=== PATIENT | female | born 2000 ===

== ENCOUNTER 2022-01-16 09:57 | Inpatient (IN) | payer SELFPAY ==
[2022-01-16] MEDS: LACTATED RINGERS 1,000 ML IV SCH ×3 (11:15→18:48)
--- NOTE | 2022-01-16 11:16 | History and Physical Report ---
History of Present Illness Date of examination: 01/16/22 Date of admission: 01/16/2022 Chief complaint: Contractions, leaking of water. History of present illness: 21 year old presents to L&D at 40 weeks, 3 days gestation with complaint of contractions and leaking of water since 1:00 this morning. Patient received care at [facility] and she brings records with her. LMP 04/08/21. EDC 01/13/22. Reports normal uneventful . Denies health problems. labs are as follows: A+, antibody screen negative, rubella immune, hepatitis B surface antigen negative, RPR nonreactive, HIV negative, gonorrhea negative, chlamydia negative, GBS negative, pap smear normal, glucose test normal. Past History Past Medical History: no pertinent history Past Surgical History: no surgical history [employer] History: denies: chlamydia, gonorrhea, hepatitis B, hepatitis C, herpes, HIV, syphilis, trichomonas Family/Genetic History: none Social history: no significant social history, full code. denies: smoking, alcohol abuse, prescription drug abuse, IV drug use - Obstetrical History Expected Date of Delivery: 01/13/22 Actual Gestation: 40 Week(s) 3 Day(s) : 1 Para: 0 Hx # Term Pregnancies: 0 Number of Pregnancies: 0 Spontaneous Abortions: 0 Induced : 0 Number of Living Children: 0 Medications and Allergies Allergies Allergy/AdvReac Type Severity Reaction Status Date / Time No Known Allergies Allergy Unverified 01/16/22 10:31 Active Meds: Active Medications Acetaminophen (Acetaminophen 325 Mg Tab) 650 mg PO Q4H PRN PRN Reason: Pain, Mild (1-3) Carboprost Tromethamine (Carboprost Tromethamine 250 Mcg/1 Ml Inj) 250 mcg IM ONCE PRN PRN Reason: Uterine Bleeding Ephedrine Sulfate (Ephedrine Sulfate 50 Mg/1 Ml Inj) 10 mg IV Q2M PRN PRN Reason: Hypotension Fentanyl (Fentanyl 100 Mcg/2 Ml Inj) 100 mcg IV Q2H PRN PRN Reason: Pain,Severe (7-10) LABOR PAIN Oxytocin/Sodium Chloride (Pitocin/Ns 30 Unit/500ml) 30 units in 500 mls @ 2 mls/hr IV TITR CHRISTIE; Protocol Lactated Ringer's (Lactated Ringers) 1,000 mls @ 125 mls/hr IV DIRECT CHRISTIE Oxytocin/Sodium Chloride (Pitocin/Ns 30 Unit/500ml) 30 units in 500 mls @ 40 mls/hr IV TITR CHRISTIE; Protocol Ampicillin Sodium (Ampicillin/Ns 2 Gm/100 Ml) 2 gm in 100 mls @ 100 mls/hr IV ONCE ONE; Protocol Stop: 01/16/22 12:04 Lidocaine (Lidocaine (2%) 20 Mg/1 Ml Vial 20 Ml Mdv) 20 ml INFILTRATI ONCE ONE Stop: 01/16/22 12:01 Loperamide HCl (Loperamide 2 Mg Cap) 2 mg PO ONCE PRN PRN Reason: give with Hemabate Methylergonovine Maleate (Methylergonovine Maleate 0.2 Mg/Ml Vial) 0.2 mg IM ONCE PRN PRN Reason: Uterine Bleeding Mineral Oil (Mineral Oil 30 Ml Oral Liqd) 30 ml PO QHS PRN PRN Reason: Constipation Misoprostol (Misoprostol 200 Mcg Tab) 800 mcg ND ONCE PRN PRN Reason: Uterine Bleeding Nalbuphine HCl (Nalbuphine 10 Mg/1 Ml Inj) 10 mg IV Q2H PRN PRN Reason: Pain, Moderate (4-6) Oxytocin (Oxytocin 10 Unit/1 Ml Inj) 10 unit IM ONCE PRN PRN Reason: Uterine Bleeding Terbutaline Sulfate (Terbutaline 1 Mg/1 Ml Inj) 0.25 mg SUB-Q ONCE PRN PRN Reason: Hyperstimulation/Hypertonicity Review of Systems All systems: negative (contractions, leaking of fluid) - Vital Signs Vital signs: Vital Signs Pulse Pulse Ox 101 H 99 01/16/22 10:23 01/16/22 10:23 Temp Pulse Resp BP Pulse Ox 98.8 F 108 H 131/77 99 01/16/22 10:40 01/16/22 11:08 01/16/22 11:01 01/16/22 11:08 - Physical Exam Abdomen: Positive: normal appearance, soft. Negative: distention, tenderness, guarding, rigidity Genitourinary (Female): Positive: normal external genitalia, normal perenium. Negative: perineal/vulvar lesions Vagina: Positive: other (small amount of clear fluid seen) Uterus: Positive: enlarged. Negative: tender Anus/Rectum: Positive: normal perianal skin Extremities: Negative: tenderness - Obstetrical FHR: category 1 Uterine Contraction Monitor Mode: External Cervical Dilatation: 3 Cervical Effacement Percentage: 100 station: -3 Uterine Contraction Pattern: Irregular Uterine Contraction Intensity: Mild Results All other labs normal. Assessment and Plan A: at 40 weeks, 3 days gestation. SROM, early labor. GBS negative. P: Admit. EFM. Pitocin augmentation of labor. Patient consented to Pitocin augmentation of labor. Epidural if desired.
[2022-01-16] MEDS ORDERED: ePHEDrine SULFATE 50 MG/1 ML INJ IV PRN ×2 (12:00→18:15)
[2022-01-16] MEDS ORDERED: ACETAMINOPHEN 325 MG TAB PO PRN (12:00)
[2022-01-16] MEDS ORDERED: LOPERAMIDE 2 MG CAP PO PRN (12:00)
[2022-01-16] MEDS ORDERED: CARBOPROST TROMETHAMINE 250 MCG/1 ML INJ IM PRN (12:00)
[2022-01-16] MEDS ORDERED: OXYTOCIN 10 UNIT/1 ML INJ IM PRN (12:00)
[2022-01-16] MEDS ORDERED: AMPICILLIN/NS 2 GM/100 ML 2 GM/100 ML BAG IV ONE (12:00)
[2022-01-16] MEDS ORDERED: LIDOCAINE (2%) 20 MG/1 ML VIAL 20 ML MDV INFILTRATI ONE ×3 (12:00→23:37)
[2022-01-16] MEDS ORDERED: OXYTOCIN DRIP 30 UNITS/500 ML BAG IV SCH ×2 (12:00)
[2022-01-16] MEDS ORDERED: METHYLERGONOVINE MALEATE 0.2 MG/ML VIAL IM PRN (12:00)
[2022-01-16] MEDS ORDERED: TERBUTALINE 1 MG/1 ML INJ SUB-Q PRN (12:00)
[2022-01-16] MEDS ORDERED: miSOPROStol 200 MCG TAB PR PRN (12:00)
[2022-01-16] MEDS ORDERED: NalbUPHINE 10 MG/1 ML INJ IV PRN (12:00)
[2022-01-16] MEDS ORDERED: MINERAL OIL 30 ML ORAL LIQD PO PRN (12:00)
[2022-01-16 12:03] LABS: Hematocrit 38.2 % (30.3-42.9); Hemoglobin 12.6 gm/dl (10.1-14.3); Mean Corpuscular HGB Conc 33 % (30-34); Mean Corpuscular Volume 91 fl (79-97); Platelet Count 269 K/mm3 (140-440); Red Blood Count 4.19 M/mm3 (3.65-5.03); Red Cell Distribution Width 14.3 % (13.2-15.2)
[2022-01-16 12:09] LABS: Alanine Aminotransferase 11 units/L (7-56); Albumin 3.4 g/dL (3.9-5); Blood Urea Nitrogen 9 mg/dL (7-17); Calcium 9.1 mg/dL (8.4-10.2); Hemolysis Index 3
[2022-01-16 12:48] LABS: BUN/Creatinine Ratio 18
[2022-01-16] MEDS ORDERED: GENTAMICIN 100 MG in SODIUM CHLORIDE 0.9% 100 ML IV SCH (15:15)
[2022-01-16] MEDS: fentaNYL 100 MCG/2 ML INJ IV PRN ×2 (15:50→22:04)
--- NOTE | 2022-01-16 15:50 | Event Note ---
Date: 01/16/22 Patient requests pain medication. SVE 4/100/-3. Mild maternal tachycardia noted. Mild fundal tenderness. Elevated WBC (17.7). Antibiotics changed to Ampicillin 2 grams IV every 6 hours and Gentamicin 100 mg IV every 8 hours due to suspected early chorioamnionitis. So far patient is afebrile but she states she feels hot. FHR tracing is reassuring. Patient is receiving Pitocin for augmentation of labor due to srom since 01:00 today and suspected early chorio. Contractions are every 2-3 minutes and uterus palpates soft between contractions. Urinalysis and urine culture ordered.
[2022-01-16] MEDS ORDERED: AMPICILLIN/NS 1 GM/50 ML 1 GM/50 ML BAG IV SCH (16:00)
[2022-01-16] MEDS: AMPICILLIN/NS 2 GM/100 ML 2 GM/100 ML BAG IV SCH ×2 (18:04→22:48)
[2022-01-16] MEDS ORDERED: NALOXONE 2 MG/2 ML INJ IV PRN (18:15)
[2022-01-16] MEDS ORDERED: fentaNYL-BUPIV 2 MCG/ML-0.125% 200 MCG/100 ML BAG EPIDURAL SCH (19:00)
--- NOTE | 2022-01-16 19:01 | Anesthesia Consultation ---
Anesthesia Consult and Med Hx Date of service: 01/16/22 - Airway Anesthetic Teeth Evaluation: Poor ROM Head & Neck: Adequate Mental/Hyoid Distance: Adequate Mallampati Class: Class II Intubation Access Assessment: Probably Good - Pulmonary Exam CTA: Yes - Cardiac Exam Cardiac Exam: RRR - Pre-Operative Health Status ASA Pre-Surgery Classification: ASA2 Proposed Anesthetic Plan: Epidural - Pulmonary Hx Smoking: No Hx Asthma: No COPD: No Hx Pneumonia: No - Cardiovascular System Hx Hypertension: No - Central Nervous System Hx Seizures: No Hx Psychiatric Problems: No - Endocrine Hx Renal Disease: No Hx End Stage Renal Disease: No Hx Hypothyroidism: No Hx Hyperthyroidism: No - Hematic Hx Anemia: No Hx Sickle Cell Disease: No - Other Systems Hx Alcohol Use: No Hx Substance Use: No
--- NOTE | 2022-01-16 19:04 | Progress Note ---
Labor Epidural - Labor Epidural Start Time: 18:31 Stop Time: 18:45 Performed by:: SIDNEY PELAEZ Procedure: Patient is requesting epidural for labor pain. H&P and labs reviewed. Procedure explained, questions answered, consent obtained. Patient placed in sitting position with monitors applied. Timeout performed immediately before start of procedure. Prep/drape in usual sterile fashion. Skin localized 3 mL 1% lidocaine at L[3]-L[4] interspace. 17-gauge Touhy epidural needle advanced to ML with saline at [8] cm [id number]. No blood/CSF noted via epidural needle. Epidural catheter advanced to [12] cm. Negative aspiration for blood and CSF via catheter, negative response to test dose 3 ml 1.5% lidocaine w/ Epi. Sterile dressing applied followed by tape reinforcement. Patient tolerated procedure well. No immediate complications noted.
--- NOTE | 2022-01-16 20:00 | Event Note ---
Date: 01/16/22 Pitocin turned off at 19:09. FHR at that time with marked variability and baseline rate of 145 and accelerations present. Patient repositioned in lateral position. Oxygen per face mask. Contractions every 2-3 minutes. Uterus palpates soft between contractions. Patient is comfortable since receiving epidural. SVE 9/100/0. FHR 150s with moderate variability and accelerations.
[2022-01-16] MEDS ORDERED: MAGNESIUM HYDROXIDE (MOM) ORAL LIQD UDC PO PRN (23:21)
[2022-01-16] MEDS ORDERED: WITCH HAZEL/ GLYCERIN PAD TP PRN (23:21)
[2022-01-16] MEDS ORDERED: HYDROCORTISONE 25 MG RECTAL SUPP PR PRN (23:21)
[2022-01-16] MEDS ORDERED: BENZOCAINE/MENTHOL 20/0.5% TOP SPRAY 56 GM TP PRN (23:21)
[2022-01-16] MEDS ORDERED: LANOLIN/ZINC/DIMETHICONE (LANSINOH) 7 GM TP PRN ×2 (23:21)
[2022-01-16] MEDS ORDERED: HYDROcodone/ACETAMINOPHEN 5-325 MG TAB PO PRN (23:21)
--- NOTE | 2022-01-16 23:33 | Procedure Note ---
OB Delivery Note - Delivery Date of Delivery: 01/16/22 Surgeon: LEORA RICKS Estimated blood loss: 300cc - Vaginal Delivery presentation: vertex Delivery position: OA Intrapartum events: none Delivery induction: none Delivery augmentation: pitocin Delivery monitor: external FHT, external uterine Route of delivery: Delivery placenta: spontaneous Delivery cord: 3 umbilical vessels Episiotomy: none Delivery laceration: 1st degree, 2nd degree Delivery repair: vicryl Anesthesia: local, epidural Delivery comments: Spontaneous vaginal delivery at 21:42 of liveborn male infant weighing 7 lb. 6 oz. with apgars of 8/9. Epidural anesthesia. was atraumatic; baby was placed on mom's chest immediately after delivery. Baby was suctioned with bulb syringe and dried. Spontaneous cry and respirations. 3 vessel cord was double clamped and cut and baby taken to radiant warmer for evaluation. Spontaneous delivery of intact placenta and membranes at 21:47. Pitocin to IV fluids after delivery of placenta. EBL 300 cc. Second degree perineal laceration, vaginal laceration, and bilateral first degree labial lacerations repaired with 2-0 and 3-0 vicryl suture. No other lacerations noted. Vaginal sweep negative. Sponge count correct. Mother and baby stable in birthing room. Placenta to pathology.
[2022-01-17] MEDS: IBUPROFEN 800 MG TAB PO SCH ×4 (01:56→22:36)
[2022-01-17] MEDS: DOCUSATE SODIUM 100 MG CAP PO SCH ×3 (01:56→22:36)
--- NOTE | 2022-01-17 05:49 | Post Anesthesia Evaluation ---
- Post Anesthesia Evaluation Patient Participated: Yes Airway Patent: Yes Stable Respiratory Function: Yes Nausea/Vomiting: No Temp > 96.8F: Yes Pain Manageable: Yes Adequeate Hydration: Yes Anesthesia Complications: No Block Receding Appropriately: Yes Patient on Ventilator: No
[2022-01-17 08:54] LABS: Hematocrit 32.3 % (30.3-42.9); Hemoglobin 10.8 gm/dl (10.1-14.3); Mean Corpuscular HGB Conc 33 % (30-34); Mean Corpuscular Volume 92 fl (79-97); Platelet Count 222 K/mm3 (140-440); Red Blood Count 3.53 M/mm3 (3.65-5.03); Red Cell Distribution Width 14.8 % (13.2-15.2)
--- NOTE | 2022-01-17 10:20 | Progress Note ---
Assessment and Plan A: PP Day #1 Stable P: Follow Routine Orders D/C home today per patient request RTO in 6 Weeks Subjective - Subjective Date of service: 01/17/22 Patient reports: appetite normal, voiding normally, pain well controlled, flat us, ambulating normally : doing well, bottle feeding (and ) Objective - Vital Signs Latest vital signs: Vital Signs Temp Pulse Resp BP BP Pulse Ox Pulse Ox 01/17/22 08:28 96 01/17/22 07:18 98.2 F 78 18 121/62 96 01/17/22 04:48 98.5 F 81 18 109/53 97 01/17/22 00:30 98.4 F 98 H 20 130/60 98 98 01/17/22 00:00 105 H 98 01/16/22 23:55 94 H 97 01/16/22 23:51 92 H 125/62 01/16/22 23:50 95 H 97 01/16/22 23:45 106 H 153/67 97 01/16/22 23:40 91 H 97 01/16/22 23:36 95 H 144/65 01/16/22 23:35 94 H 98 01/16/22 23:30 96 H 98 01/16/22 23:25 85 97 01/16/22 23:22 106 H 156/76 01/16/22 23:20 107 H 97 01/16/22 23:15 95 H 98 01/16/22 23:10 84 98 01/16/22 23:07 89 136/59 01/16/22 23:05 87 97 01/16/22 23:00 86 97 01/16/22 22:55 87 99 01/16/22 22:51 86 123/59 01/16/22 22:50 94 H 99 01/16/22 22:45 84 98 01/16/22 22:40 80 98 01/16/22 22:36 84 114/54 01/16/22 22:35 87 97 01/16/22 22:30 86 98 01/16/22 22:25 94 H 98 01/16/22 22:21 90 111/60 01/16/22 22:20 96 H 98 01/16/22 22:18 92 H 109/55 01/16/22 22:15 98.3 F 95 H 97 03/20/22 22:10 95 H 97 22 22:06 93 H 112/85 98 0320/22 22:00 100 H 98 22 21:55 103 H 98 22 21:51 107 H 103/56 01/16/22 21:50 107 H 98 22 21:49 102 H 95/52 20/22 21:46 106 H 97 22 21:41 62 72 L 22 21:37 137 H 94 22 21:36 187 H 105/53 2022 21:35 129 H 96 22 21:30 111 H 98 22 21:27 110 H 78 L 01/16/22 21:24 130 H 99 22 21:21 122 H 88 22 21:19 122 H 99 01/16/22 21:14 96 H 97 01/16/22 21:11 99.5 F 01/16/22 21:09 90 100 22 21:07 83 135/73 22 21:04 100 H 99 22 20:59 93 H 100 20/22 20:54 84 100 0320/22 20:51 76 128/63 0320/22 20:49 79 100 20/22 20:44 79 100 0320/22 20:39 79 99 2022 20:36 77 125/61 0320/22 20:34 87 100 0320/22 20:29 81 100 0320/22 20:24 76 100 032022 20:22 78 119/64 0320/22 20:19 83 100 0320/22 20:14 86 100 0320/22 20:09 75 99 0320/22 20:06 80 108/61 0320/22 20:05 80 100 0320/22 20:00 84 100 0320/22 19:55 74 100 0320/22 19:51 68 102/54 0320/22 19:50 70 100 0320/22 19:49 100 0320/22 19:44 67 100 0320/22 19:39 67 100 0320/22 19:36 67 105/51 0320/22 19:35 72 100 01/16/22 19:30 69 100 01/16/22 19:25 68 98 01/16/22 19:20 80 108/56 99 01/16/22 19:18 66 105/49 01/16/22 19:16 74 106/52 01/16/22 19:14 82 111/60 100 01/16/22 19:12 97 H 116/58 01/16/22 19:10 105 H 126/58 100 01/16/22 19:08 103 H 115/59 01/16/22 19:06 94 H 117/57 01/16/22 19:05 81 100 01/16/22 19:04 93 H 116/56 01/16/22 19:02 101 H 106/53 01/16/22 19:00 99 H 113/55 100 01/16/22 18:58 100 H 113/58 01/16/22 18:56 100 H 117/56 01/16/22 18:55 91 H 100 01/16/22 18:54 77 122/58 01/16/22 18:50 90 111/58 97 01/16/22 18:48 104 H 110/61 01/16/22 18:46 108 H 111/62 01/16/22 18:45 96 H 96 01/16/22 18:40 90 98 01/16/22 18:38 114 H 91 01/16/22 18:35 106 H 98 01/16/22 18:30 85 100 01/16/22 18:25 102 H 98 01/16/22 18:24 98.4 F 17 01/16/22 18:20 115 H 99 01/16/22 18:15 103 H 99 01/16/22 18:09 104 H 100 01/16/22 18:05 97 H 100 01/16/22 18:00 94 H 100 01/16/22 17:55 88 98 01/16/22 17:50 100 H 99 22 17:45 101 H 98 01/16/22 17:40 94 H 98 01/16/22 17:35 90 98 01/16/22 17:19 97 H 100 01/16/22 17:14 112 H 100 01/16/22 17:10 82 106/51 01/16/22 17:09 81 99 03/20/22 17:04 109 H 100 22 16:59 102 H 100 22 16:54 84 100 22 16:49 74 100 22 16:44 108 H 100 0322 16:41 83 117/63 0322 16:39 102 H 99 22 16:34 109 H 99 01/16/22 16:32 98.4 F 18 01/16/22 16:29 96 H 99 01/16/22 16:24 85 97 22 16:19 91 H 98 01/16/22 16:14 88 96 01/16/22 16:09 105 H 105/57 97 01/16/22 16:04 77 97 01/16/22 15:59 102 H 96 01/16/22 15:54 84 96 01/16/22 15:49 106 H 99 01/16/22 15:44 105 H 98 01/16/22 15:39 116 H 130/79 98 01/16/22 15:34 102 H 98 01/16/22 15:29 102 H 98 01/16/22 15:24 100 H 97 01/16/22 15:19 93 H 97 01/16/22 15:14 111 H 98 01/16/22 15:10 106 H 125/73 01/16/22 15:09 104 H 98 01/16/22 15:04 101 H 99 01/16/22 14:59 108 H 99 01/16/22 14:54 122 H 97 01/16/22 14:49 99 H 98 01/16/22 14:44 100 H 98 01/16/22 14:39 101 H 138/65 98 01/16/22 14:34 103 H 98 01/16/22 14:31 98.7 F 20 01/16/22 14:30 98 01/16/22 14:29 116 H 97 01/16/22 14:24 110 H 98 01/16/22 14:19 100 H 99 01/16/22 14:14 94 H 98 01/16/22 14:09 89 110/59 97 01/16/22 14:04 97 H 99 01/16/22 13:59 83 98 22 13:54 90 98 22 13:49 90 98 01/16/22 13:44 99 H 98 01/16/22 13:40 82 96/52 01/16/22 13:39 75 94 01/16/22 13:34 103 H 99 01/16/22 13:29 87 98 01/16/22 13:24 96 H 98 01/16/22 13:19 94 H 99 01/16/22 13:14 88 98 01/16/22 13:11 88 92/52 01/16/22 13:09 98 H 97 01/16/22 11:33 123 H 98 01/16/22 11:28 119 H 97 01/16/22 11:23 119 H 98 01/16/22 11:18 125 H 98 01/16/22 11:13 99 H 99 01/16/22 11:08 108 H 99 01/16/22 11:03 107 H 98 01/16/22 11:01 107 H 131/77 01/16/22 10:58 123 H 99 01/16/22 10:53 106 H 99 01/16/22 10:48 105 H 99 01/16/22 10:43 119 H 99 01/16/22 10:40 98.8 F 01/16/22 10:38 95 H 99 01/16/22 10:33 100 H 99 01/16/22 10:28 107 H 99 01/16/22 10:23 101 H 99 Intake and Output 01/16/22 01/17/22 01/17/22 22:59 06:59 14:59 Intake Total 456.367 360 240 Output Total 100 650 Balance 356.367 -290 240 Intake: IV 456.367 AMPICILLIN/NS 2 GM/100 ML 100 2 gm In 100 ml @ 100 mls /hr IV Q6H CHRISTIE Rx#: [id number] Lactated Ringers 1,000 ml 356.25 @ 125 mls/hr IV DIRECT CHRISTIE Rx#:[id number] PITOCin/NS 30 UNIT/500ML 0.117 30 units In 500 ml @ 2 mls/hr IV TITR CHRISTIE Rx#: [id number] Oral 240 Intake, Free Water 360 Output: Urine 100 650 Indwelling Catheter 100 Void 650 Other: Total, Intake Amount 240 Total, Output Amount 100 650 # Voids Void 1 1 Estimated Blood Loss 300 - Exam Breasts: Present: normal Cardiovascular: Present: Regular rate Lungs: Present: Clear to auscultation, Normal air movement Abdomen: Present: normal appearance, soft, normal bowel sounds Uterus: Present: normal, firm, fundal height below umbilicus Extremities: Present: normal Incision: Present: normal, dry, intact - Labs Labs: Abnormal lab results 01/16/22 01/16/22 01/17/22 Range/Units 11:26 11:26 08:29 WBC 17.7 H 21.0 H (4.5-11.0) K/mm3 RBC 3.53 L (3.65-5.03) M/mm3 Sodium 136 L (137-145) mmol/L Carbon Dioxide 18 L (22-30) mmol/L Creatinine 0.5 L (0.6-1.2) mg/dL Alkaline Phosphatase 213 H (35-129) units/L Albumin 3.4 L (3.9-5) g/dL
--- NOTE | 2022-01-17 10:21 | Discharge Summary ---
Providers - Providers Date of Admission: 01/16/22 09:58 Date of discharge: 01/17/22 Attending physician: LE TORIBIO MD 01/16/22 23:23 Consult to Compliance Spec [CONS] Routine Reason For Exam: assistance with , SNS Primary care physician: LE TORIBIO MD Hospitalization Reason for admission: rupture of membranes Delivery: Episiotomy: none Laceration: 2nd degree Other procedures: none complications: none Discharge diagnosis: IUP at term delivered [place] baby: male Condition at discharge: Good Disposition: 01 HOME / SELF CARE / HOMELESS Plan - Provider Discharge Summary Activity: routine, no sex for 6 weeks, no heavy lifting 4 weeks, no strenuous exercise Diet: routine Instructions: routine Additional instructions: [] Smoking cessation referral if applicable(refer to patient education folder for contact #) [] Refer to [facility]'s [facility] Booklet Call your doctor immediately for: * Fever > 100.5 * Heavy vaginal bleeding ( >1 pad per hour) * Severe persistent headache * Shortness of breath * Reddened, hot, painful area to leg or breast * Drainage or odor from incision. * Keep incision clean and dry at all times and follow doctor's instructions regarding bathing/showering - Follow up plan Follow up: LE TORIBIO MD [Primary Care Provider] - 6 Weeks
[2022-01-18 00:02] VITALS: BP 110/65
[2022-01-18] MEDS: IBUPROFEN 800 MG TAB PO SCH (01:34)
== END 2022-01-17 23:59 | disposition home or self-care (01) | DRG 807 ==
LOC: TRG 09:57 → APU 09:58 → TRG 11:14 → LD 11:25 → APU 11:26 → LD 11:46 → OB 01-17 00:20
PROVIDERS: ADMIT Obstetrics & Gynecology; ATTEND Obstetrics & Gynecology
PROC: 10E0XZZ Delivery of Products of Conception, External Approach (ICD-10-PCS; principal; 2022-01-16)
PROC: 0KQM0ZZ Repair Perineum Muscle, Open Approach (ICD-10-PCS; 2022-01-16)
PROC: 3E0R3BZ Introduction of Anesthetic Agent into Spinal Canal, Percutaneous Approach (ICD-10-PCS; 2022-01-16)
PROC: 00HU33Z Insertion of Infusion Device into Spinal Canal, Percutaneous Approach (ICD-10-PCS; 2022-01-16)
DX: O70.1 Second degree perineal laceration during delivery (principal); Z37.0 Single live birth; Z20.822 Contact with and (suspected) exposure to COVID-19; Z3A.40 40 weeks gestation of pregnancy
CPT/HCPCS: 36415; 59025; 80053; 85027; 86592; 86850; 86900; 86901; 96374; 99211; G0378; G0463; J0290; J1580; J2590; J3010; J7120; U0003